=== PATIENT | female | born 1935 | race Caucasian/White ===

== ENCOUNTER 2023-09-29 15:20 | Inpatient (IN) | payer MEDICARE, OTHER, SELFPAY ==
[2023-09-27] VITALS (7 sets, daily range): BP systolic 165–194; BP diastolic 83–101; BMI 34.0; BMI 32.6
[2023-09-27 16:08] LABS: % Immature Granulocytes 0.4 % (0-0.5); % Lymphocytes 22.5 % (20.5-51.1); % Monocytes 8.7 % (1.7-9.3); % Neutrophils 68.4 % (42.2-75.2); Absolute Lymphocytes 1.1 10^3/uL (1.2-3.4); Absolute Monocytes 0.4 10^3/uL (0.1-0.6); Absolute Neutrophils 3.4 10^3/uL (1.4-6.5); Hematocrit 37.7 % (37.0-47.0); Hemoglobin 13.3 g/dL (12.0-16.0); Mean Corp Hgb Conc. 35.3 g/dL (33.0-37.0); Mean Corpuscular Hgb 30.6 pg (27.0-31.0); Mean Corpuscular Volume 86.7 fL (81.0-99.0); Mean Platelet Volume 8.4 fL (7.4-10.4); Nucleated Red Blood Cells % 0 %; Platelet Count 199 10^3/uL (130-400); Red Blood Cell Count 4.35 10^6/uL (4.20-5.40); Red Cell Dist. Width 13.3 % (11.5-14.5); White Blood Cell Count 4.9 10^3/uL (4.8-10.8)
--- NOTE | 2023-09-27 16:14 | ED.GENMED ---
History of Present Illness
General
Chief Complaint: Fall
Source: patient and ambulance crew
Exam Limitations: none
Time Seen by Provider: 09/27/23 15:59
Nursing documentation reviewed up to this point in time: agreed with
Travel History
Have you had any contact with someone who has COVID-19?: No
Do you have any symptoms of coronavirus? Fever > 100 degrees, chills, cough, shortness of breath, sore throat, loss of taste or smell, muscle aches, or headache?: No
History of Present Illness
History of Present Illness:
87-year-old female presents emergency department after losing control of her walker and falling. She is unsure if she hit her head, and states it happened so fast. She complains of right knee pain, which she does have chronic right knee pain EMS
placed her on oxygen, stated that she needed it. She denies shortness of breath.
Past History
Past History
ED Past Medical History: HTN, Hypercholesterolemia and Other (Hearing impaired)
ED Past Surgical History: Appendectomy, Cholecystectomy and Gynecological
Social History
Tobacco: Non-smoker
Alcohol: None
Personal:
Living: assisted living
Family History
Family History: Negative Diabetes
Review of Systems
Review of Systems
Allergies reviewed?: Yes
All Other Systems: Not applicable
Constitutional: Reports no symptoms
EENT: Reports no symptoms
Respiratory: Reports trouble breathing
Cardiac: Reports no symptoms
ABD/GI: Reports no symptoms
: Reports no symptoms
Musculoskeletal: Reports joint pain
Skin: Reports no symptoms
Neurological: Reports dizzy and headache
Endocrine: Reports no symptoms
Hematologic/Lymphatic: Reports no symptoms
Psychiatric: Reports no symptoms
Phy Exam
Physical Exam
Physical Exam:
Physical Exam
General: no apparent distress, not acutely ill
Neck: supple. no meningeal signs. normal posterior pharynx
Heart: s1/s2 regular rate and rhythm, no murmur. equal radial
pulses.
HEENT: Pupils equal round reactive to light, EOMI
Lungs: no acute respiratory distress. clear bilaterally
Abdomen: normal bowel sounds. not tender. no CVAT
Neuro: alert and oriented. no focal neurological deficits cranial nerves II through XII intact
Skin: no rash
Psychiatric: well kept. interactive and cooperative
Extremities: no edema. no calf tenderness. negative homans. good distal pulses, mild right knee tenderness to palpation.
Course
Orders/Labs/Results
Orders:
Orders
09/27/23 15:42
Electrocardiogram (*1) Urgent
Reason for Study: Other
Other Reason for Exam: fall
EKG- Treatment ONCE
09/27/23 15:49
Complete Blood Count/With Diff Urgent
Comprehensive Metabolic Panel Urgent
09/27/23 16:12
CT Head W/o Iv Contrast Urgent
Comment:
Reason For Exam: Fall, dizzy
Knee, Right 4 or More Views [CR Knee- Right 4 Or More View*] Urgent
Comment:
Reason For Exam: Fall, right knee pain
09/27/23 16:13
CR Chest - 2 Views Urgent
Comment:
Reason For Exam: Fall, short of breath
09/27/23 16:18
NT-proBNP Urgent
Troponin I Urgent
09/27/23 18:54
Lisinopril [Zestril] 10 mg PO NOW STA
Abnormal Lab Results
09/27/23
15:49
Absolute Lymphs (auto) 1.1 L 10^3/uL
(1.2-3.4)
Carbon Dioxide 19 L mmol/L
(22-30)
Glucose 111 H mg/dl
(70-99)
09/27/23 15:49
09/27/23 15:49
Vital Signs
Initial and Last Documented VS:
Initial Vital Signs
Temp Pulse Resp BP Pulse Ox
98 F 89 18 170/86 93
09/27/23 15:42 09/27/23 15:42 09/27/23 15:42 09/27/23 15:42 09/27/23 15:42
Last Documented Vital Signs
Temp Pulse Resp BP Pulse Ox
98 F 89 20 182/101 96
09/27/23 15:42 09/27/23 18:45 09/27/23 18:45 09/27/23 18:00 09/27/23 18:45
MDM/Problems Addressed
Differential Diagnosis Includes:
copd exacerbation, hypertensive urgency, intracranial hemorrhage, knee fracture
MDM/Problems Addressed:
87-year-old female with hypoxia, likely due to COPD. Will give a dose of lisinopril, and DuoNeb. Admit to hospitalist. Patient's fall, unclear if mechanical or due to hypertensive urgency. No significant injuries.
Chronic conditions affecting care: HTN
Acute Exacerbation and/or Progression of Chronic Illness: HTN
*Pulse Oximetry
Patient hypoxic: yes
*EKG
Interpreted by ED Provider?: Yes
EKG Intrepretation Date: 09/27/23
EKG Intrepretation Time: 15:42
Interpretation: abnormal
Comparison EKG: no changes
Heart Rate: 88
Rate: normal
Rhythm: sinus and PVC's
Flushing: normal axis
Interval: normal interval
QRS Pattern: left vent hypertrophy
Ischemia: no ischemia
*Play Reader Interpretation
Rate: normal
Interpretation: normal
Heart Rate: 84
Rhythm: sinus
*Critical Care Note
Total Time (30-74mins, 75-104mins- exclusive of procedures): Not Applicable
ED Attending Note
-
Portions of this chart may have been created with voice recognition software.� Occasional wrong word or��sound alike� substitutions may have occurred due to the inherent limitations of voice recognition software.
Discharge Plan
Departure
Patient Disposition: Admit
Date of Disposition: 09/27/23
Time of Disposition: 18:53
Admit to: Telemetry
Presentation/result/management discussed w/ accepting MD/DO: Hospitalist
Condition: Fair
Discharge Problem:
Hypertensive urgency, Hypoxia, Fall
Prescriptions:
No Action
imipramine HCl 25 MG tablet
150 mg PO HS Qty: 0 0RF
clonazepam 0.5 mg Tablet
0.5 mg PO HS
methenamine hippurate [Hiprex] 1 gram Tablet
1 g PO QPM
Gemtesa 75 mg Tablet
75 mg PO QPM
quetiapine [Seroquel] 200 mg Tablet
200 mg PO HS
lisinopril 10 mg Tablet
10 mg PO QPM
Visbiome 112.5 billion cell Capsule
1 cap PO QPM
Sleep Patch
2 patch topical HS
Rx Instructions:
contains valerian root, melatonin, hops and magnesium malate. only aloud 1 patch a night patient using 2 per night and just took them off before coming here
cyanocobalamin (vitamin B-12) 100 mcg Tablet
250 mcg PO DAILY Qty: 30 0RF
Interventions
Interventions:
*Risk Screen - Suicide Last Done: 09/27/23 15:46
*General Assessment Last Done: 09/27/23 15:46
*Neglect/Abuse Screening Last Done: 09/27/23 15:46
*ED COVID-19 Vaccine History Last Done: 09/27/23 15:46
ED-Musculoskeletal Assessment Last Done: 09/27/23 15:53
ED- Neurological Assessment Last Done: 09/27/23 15:53
ED-Skin Assessment Last Done: 09/27/23 15:53
[2023-09-27 16:29] LABS: ALT (SGPT) 24 U/L (0-35); AST (SGOT) 30 U/L (14-36); Albumin 4.5 g/dl (3.5-5.0); Alkaline Phosphatase 76 U/L (38-126); Blood Urea Nitrogen 17 mg/dl (7-17); Calcium 8.9 mg/dl (8.4-10.2); Chloride 105 mmol/L (98-107); Estimated Creatinine Clearance 55 ml/min; Glucose 111 mg/dl (70-99); Sodium 135 mmol/L (135-145); Total Bilirubin 0.8 mg/dl (0.2-1.3); Total Protein 7.3 g/dl (6.3-8.2); eGFR > 60.00
[2023-09-27 16:38] LABS: Carbon Dioxide 19 mmol/L (22-30)
[2023-09-27 16:54] LABS: NT-proBNP 28.8 pg/ml; Troponin I < 0.012 ng/ml
--- NOTE | 2023-09-27 19:01 | HPS.HSE ---
Addendum entered and electronically signed by Garett Calderon MD 09/27/23 23:29:
Correction:
Bipolar Disorder
- Held Seroquel
<del>-</del> <del>continue</del> <del>Seroquel</del>
- Held imipramine
- cont.� clonazepam
Addendum entered and electronically signed by Garett Calderon MD 09/27/23 19:38:
I saw and examined the patient.
The LIBRARY DIRECTOR or PA's note was reviewed and I agree with the note.
Comment:
HPI
87F with impaired hearing, HTN sent to ER for evalaution of Fall suspect due to loss balance. Unsure she had hit her head or what not. Reports right knee pain plus HX chronic right knee pain EMS placed her on oxygen, stated that she needed it. She
denies shortness of breath.
PMHx
HTN, Hypercholesterolemia and Other (Hearing impaired)
PSHX
Appendectomy, Cholecystectomy and Gynecological
SHX;
Tobacco: Non-smoker
Alcohol: None
Personal:
Living: assisted living
Family History
Family History: Negative Diabetes
Reviewed VS: 170/85- 190/[address] POX low 90s on RA RR hi 10s to low 20s
PE
Gen: ni ot toxic looking
HEENT: symmetric face
Neck: supple, not tender Cs spine
Lungs: symmetric AE, no wheeze
Cor: clear , symmetric AE
Abdomen: soft , NT, NG
PAYROLL MANAGER: AAO3, NFND
MS: no edema
Psych: Interactive and cooperative
Data
nl CBC
CO2 19
nl Cr & nl GFR
NEG TPNI
pBNP 28
Pending procalcitonin
Pending UA
Pending Covid Ag & Flu A & B
EKG report
SINUS RHYTHM WITH OCCASIONAL PREMATURE VENTRICULAR COMPLEXES
LEFT VENTRICULAR HYPERTROPHY WITH REPOLARIZATION ABNORMALITY ( R in aVL ,
Ronni product )
ABNORMAL ECG
WHEN COMPARED WITH ECG OF 17-AUG-2023 14:31,
PREMATURE VENTRICULAR COMPLEXES ARE NOW PRESENT
Knee XR
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
Mild chondrocalcinosis of the lateral compartment.
CXR
Mild bibasilar atelectasis versus scarring. New
HCT
- No acute intracranial pathology.
- Mild atrophy.
- Minimal periventricular small vessel ischemic disease.
Last hospitalist admission: 08/17/23 - 08/18/23
DC DX: TME due to polypharmacy
ASSESSMENT & PLAN
Accelerated HTN with HTN urgency
Essential Hypertension on ACEI
Dizziness
NEG HCT for acute process
- add IV Hydralazine for SBP > 165, DBP > 110
- cont. Lisinopril
Fall
DREDGE PUMPER Polypharmacy noted
HX Recurrent UTIs
- Eval for origins TME
- check UA, Procalcitonin, Flu A & B, Covid Ag'
- cont. hiprex
- Held Seroquel - can cont Clonazepam - held for excessive sedation
- fall precaution
- PT/OT
Borderline hypoxia - POx 94- 95 on RA
- held some PAYROLL MANAGER suppressant meds
- Incentive spirometry
Bipolar Disorder
- continue Seroquel
- Held imipramine
- cont. clonazepam
Insomnia
-Held Sleep Patch
Overactive Bladder
-Continue Gemtesa
DVT proph: LMWH
Code Status: Full Code
Obs TLM
Original Note:
Family Physician
-
Family Physician:
Chief Complaint
-
fall
History of Present Illness
87-year-old high cholesterol presented to us with mechanical fall. Patient got new wheeled walker last week. Patient does not know how to function it properly. She fell early in the morning when her walker moved away from her. Second time, she
she was on top of the stairs and lost her walker. she fell on her side. does not remember if she hit the head. stated dizzy and headache after the fall. Patient denied fever, chills, chest pain or short of breath. Patient denied cough, runny nose
and congestion. Patient denied abdominal pain, nausea, vomiting, diarrhea. Patient denied dysuria hematuria.
Patient was noted 92 on room air, supplemental with oxygen obtain a chest x-ray, Hip x-ray and head CT.
Blood pressure elevated in ER, lisinopril given in the ER. Admitting for further management.
Medical History
Past Medical History
Past Medical History: Reports Other
Additional Past Medical History:
Essential Hypertension
Hyperlipidemia
Bipolar Disorder
Overactive Bladder
Recurrent UTIs
Past Surgical History: Reports Other
Additional Past Surgical History:
hyroid Cyst Removal
Appendectomy
Cholecystectomy
Breast Reduction
Hip Surgery
Social History
Tobacco: Former Smoker
Alcohol: None
Drug: None
Personal: Single
Family History
Family History: Not pertinent
Allergies / Home Medications
Allergies reflects when Allergies were last updated in [employer].
Home Medications with original date entered in [employer]
Allergy/Medication List:
Allergies
Allergy/AdvReac Type Severity Reaction Status Date / Time
azithromycin Allergy SEE BELOW Verified 08/25/23 14:44
erythromycin base Allergy Unknown Verified 08/25/23 14:44
Home Medications
Sleep Patch 2 patch topical HS sleep 08/17/23
clonazepam 0.5 mg tablet 0.5 mg PO HS anxiety/sleep 08/17/23
lisinopril 10 mg tablet 10 mg PO QPM blood pressure 08/17/23
methenamine hippurate 1 gram tablet (Hiprex) 1 g PO QPM Urinary Issue 08/17/23
quetiapine 200 mg tablet (Seroquel) 200 mg PO HS Mental Health/Anxiety 08/17/23
vibegron 75 mg tablet (Gemtesa) 75 mg PO QPM Urinary Issue 08/17/23
ascorbic acid (vitamin C) 500 mg tablet (Vitamin C) 500 mg PO QPM 09/27/23
imipramine HCl 50 mg tablet 150 mg PO HS 09/27/23
meclizine 12.5 mg tablet 12.5 mg PO TID PRN dizziness 09/27/23
multivitamin 1 tab PO QPM 09/27/23
omeprazole 20 mg capsule,delayed release 20 mg PO DAILY PRN reflux 09/27/23
phenazopyridine 100 mg tablet (Pyridium) 100 mg PO TID PRN 'feel bladder infection coming on' 09/27/23
Review of Systems
-
Constitutional: Reports No Symptoms
EENT: Reports No Symptoms
Respiratory: Reports No Symptoms
Cardiac: Reports No Symptoms
Abdomen/GI: Reports No Symptoms
: Reports No Symptoms
Musculoskeletal: Reports No Symptoms
Skin: Reports No Symptoms
Neurological: Reports No Symptoms
Endocrine: Reports No Symptoms
Hematologic/Lymphatic: Reports No Symptoms
Psych: Reports No Symptoms
Physical Exam
Vital Signs
Vital Signs
Temp Pulse Resp BP Pulse Ox
98 F 89 20 182/101 96
09/27/23 15:42 09/27/23 18:45 09/27/23 18:45 09/27/23 18:00 09/27/23 18:45
Physical Exam
General: Well Developed, Well Nourished and No Apparent Distress
HEENT: NormoCephalic, Moist mucous membranes and Atraumatic
Respiratory: Clear
Cardiac: S1/S2 and Regular Rhythm; No Murmur or Rub
GI: Soft, Non Tender, Non Distended and Normal Bowel Sounds; No Organomegaly
Rectal: Deferred by Provider
Musculoskeletal: No Clubbing, No Cyanosis and No Edema
Skin: No Rash
Neuro: AO x 3 and Nonfocal/grossly intact
Psych: Calm
Laboratory Results
-
09/27/23 15:49
09/27/23 15:49
Laboratory Results
Total Bilirubin 0.8 mg/dl (0.2-1.3) 09/27/23 15:49
AST 30 U/L (14-36) 09/27/23 15:49
ALT 24 U/L (0-35) 09/27/23 15:49
Alkaline Phosphatase 76 U/L (38-126) 09/27/23 15:49
Troponin I < 0.012 ng/ml 09/27/23 16:18
Data Reviewed
-
Diagnostic Radiology: Report Reviewed by me
CT Scan: Report Reviewed by me
Lab Data: Labs Reviewed by me
Impression/Plan
-
# Accelerated hypertension with hypertensive emergency
-SBP in 180's DBP in 100.s
-Patient received a dose of lisinopril in ER
-Lisinopril continued
-Hydralazine as needed for systolic BP greater than 170 and diastolic BP greater than 100
# Mechanical fall
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
-Head CT with impression of No acute intracranial pathology.Mild atrophy.Minimal periventricular small vessel ischemic disease.Mild nonacute sinusitis. Stable
-EKG with impression ofI sNUS RHYTHM WITH OCCASIONAL PREMATURE VENTRICULAR COMPLEXES LEFT VENTRICULAR HYPERTROPHY WITH REPOLARIZATION ABNORMALITY
-Fall precaution maintained
-Physical therapy and Occupational Therapy consulted
# Acute borderline hypoxia unclear cause
-Chest x-ray with impression of Mild bibasilar atelectasis versus scarring. New
-91-92 on room air, supplemented with 2 L of oxygen
-At present upon my evaluation 94-95 on room air
-Continue supplemental oxygen to keep sat greater than 92
-Wean as tolerated
-Pro-Michael added
-Obtain COVID, flu
-Incentive spirometer added
#Bipolar Disorder
-Hold Seroquel and imipramine
-Continue clonazepam
-Hold sleep patch
#Overactive Bladder
-Continue Gemtesa
#Recurrent UTIs
-Continue Hiprex
#DVT proph: Lovenox
Code Status: Full Code
[2023-09-27] MEDS: ZESTRIL 10 MG PO (19:04)
[2023-09-27 20:08] LABS: COVID-19 Antigen Negative (Negative)
[2023-09-27 20:28] LABS: Procalcitonin < 0.05 ng/ml (0.0-0.25)
[2023-09-27] MEDS: APRESOLINE 5 MG IV (21:34)
[2023-09-27] MEDS: KLONOPIN 0.5 MG PO (21:34)
--- NOTE | 2023-09-27 22:12 | PTCARENOTE ---
Pt admitted to 4E. AAOx3, anxious and forgetful at times. NSR in the monitor. Lung sounds are diminished, SaO2 97% 2L. Abd round and obese. pt appears comfortable in bed. Call dias within reach.
[2023-09-27] MEDS: APRESOLINE 10 MG IV (23:39)
[2023-09-28] VITALS (9 sets, daily range): BP systolic 100–172; BP diastolic 63–97; PULSE 104–107; O2SAT 94–95
[2023-09-28] MEDS: APRESOLINE 10 MG IV ×2 (07:57→20:54)
[2023-09-28 08:17] LABS: Hematocrit 40.3 % (37.0-47.0); Hemoglobin 13.8 g/dL (12.0-16.0); Mean Corp Hgb Conc. 34.2 g/dL (33.0-37.0); Mean Corpuscular Hgb 30.3 pg (27.0-31.0); Mean Corpuscular Volume 88.6 fL (81.0-99.0); Mean Platelet Volume 8.7 fL (7.4-10.4); Platelet Count 216 10^3/uL (130-400); Red Blood Cell Count 4.55 10^6/uL (4.20-5.40); Red Cell Dist. Width 13.4 % (11.5-14.5); White Blood Cell Count 5.4 10^3/uL (4.8-10.8)
[2023-09-28 08:44] LABS: Blood Urea Nitrogen 13 mg/dl (7-17); Calcium 9.2 mg/dl (8.4-10.2); Carbon Dioxide 26 mmol/L (22-30); Chloride 103 mmol/L (98-107); Estimated Creatinine Clearance 62 ml/min; Glucose 148 mg/dl (70-99); Potassium 3.7 mmol/L (3.5-5.1); Sodium 139 mmol/L (135-145); eGFR > 60.00
--- NOTE | 2023-09-28 09:20 | W.PN.HOSP.TC ---
Today's Communication/Plan
-
see A/P
Assessment / Plan
Assessment / Plan
HPI: 87 F with impaired hearing, HTN, HLD; p/w fall suspect due to loss balance. Unsure she hit her head or not. Reports right knee pain (although has h/o chronic right knee pain). EMS placed her on oxygen.� She denies shortness of breath.
A/P:
# HTN urgency
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
HCT neg for acute process
cont CONVERTER OPERATOR Lisinopril increase to 20 mg and change from HS to daily
Cont add IV Hydralazine PRN for SBP > 165, DBP > 110
# Fall
# Polypharmacy noted
# HX Recurrent UTIs
check UA
Procalcitonin neg, COVID/Flu negative
cont CONVERTER OPERATOR hiprex
Decrease CONVERTER OPERATOR Clonazepam from 0.5 to 0.25 HS
Agree to hold CONVERTER OPERATOR Seroquel
fall precaution
PT/OT recc SNF
# Acute hypoxic resp insufficiency, resolved
weaned to RA
Incentive spirometry
# Bipolar Disorder
cont decreased clonazepam
CONVERTER OPERATOR Seroquel, imipramine held
Psych CS for med adjustment
# Insomnia
cont decreased clonazepam
Hold Sleep Patch
# Overactive Bladder
Continue Gemtesa
DVT proph: LMWH
Code Status: Full Code
Anticipated Discharge: 24 - 48 hours
Subjective/Interval History
-
Date of Service: September 28, 2023
Objective Data
-
Labs:
Laboratory Results
09/28/23
06:40
WBC 5.4
Hgb 13.8
Hct 40.3
Plt Count 216
Sodium 139
Potassium 3.7
Chloride 103
Carbon Dioxide 26
BUN 13
Creatinine 0.6
Glucose 148 H
Calcium 9.2
Vital Signs:
Vital Signs
Temp Pulse Resp BP Pulse Ox
36.9 C 85 18 172/85 98
09/28/23 07:23 09/28/23 07:23 09/28/23 07:23 09/28/23 07:57 09/28/23 07:23
I&O
09/27/23 09/28/23 09/29/23
06:59 06:59 06:59
Output Total 480 / 480
Balance -480 / -480
Review of Systems
-
All other systems: Reviewed and negative
Physical Exam
-
General: Well Developed, Well Nourished, No Apparent Distress, Comfortable and Conversant; Negative Respiratory Distress
HEENT: Normocephalic, Atraumatic, Nose Appears Normal and Ears Appear Normal; Negative Oxygen
Respiratory: Clear to Auscultation and Non Labored Respirations; Negative Accessory Resp Muscle Use
Cardiac: Regular Rhythm and S1/S2
GI: Soft, Nontender, Nondistended and Normal Bowel Sounds
Skin: Warm and Dry
Neuro: Awake and Alert
Psych: Calm and Intact Judgement/Insight
Data Reviewed
-
Labs: Labs Reviewed by me
[2023-09-28] MEDS: TYLENOL 650 MG PO ×2 (11:25→16:26)
[2023-09-28] MEDS: FLUSH (NSS) 1 FLUSH IV (11:44)
--- NOTE | 2023-09-28 14:18 | CON.MD ---
Consultation - Medical
-
patient seen chart reviewed. patient is an 87 year old woman who was a good historian. she has hx of mood disorder for many years. she had a difficult childhood and believes at least some of her psych issues had to do with this experience.she had
seen dr kelley for many years who is a psychiatrist and was prescribed seroquel 200 q hs imipramine 150 mg daily and klonopin o.5 mg q hs. she has taken the imipramine since 1980! dr kellye has retired and she was to see dr aguirre as her new psych
but fell on the way in to his office and never made it there. she believes strongly that these meds have really helped her but mostly w sleep in the recent past. she struggles to fall and stay asleep. appetite is good.she has not been depressed in a
very long time. she has moments where she might be dysphoric but really feels okay mood faith. she is NOT suicidal. appetite ok. she can enjoy family whom she says is very supportive
past psych hx hospitalized forty years ago. said 'it was like cuckoo's nest'. she was at [facility] has been seeing psychiatrist for many years see above
medical here after a fall which she insists was due to her new walker ( i can actually see how this could have happened) she admits she fell with her old walker but this was a difficult negotiation across a curb. she denies she has ever
experienced dizziness sedation vertigo etc as a cause of the fall. hx gerd djd recurrent uti urinary issues hearing imparied htn cat brain w no acute changes
substance abuse none
fh schizophrenia
social resides in [place]. sis lives there also she is sis's poa two girls one of her kids many grandchildren
mse alert ox3 cooperative very pleasant speech and thought process goal oriented normal rate and tone mood is cheerful affect ok no si aver intell insight judgment ok
dx unspecified mood disorder (patient reports she has been told she is bipolar but unclear whether her depressions are unipolar or bipolar at this moment ) there is likely a complicated px given painful childhood
plan at this point would not stop meds abruptly. dc meclizine which is ordered.. stop hs klonopin. would cut back seorquel to 150 mg and imipramine to 100 mg and let her see dr aguirre to manage further changes. psych will sign off.
[2023-09-28 14:19] LABS: Urine Albumin 1+ (Neg - Trace); Urine Bilirubin Negative (Negative); Urine Character Very Cloudy (Clear); Urine Color Yellow; Urine Glucose Negative (Negative); Urine Ketone Negative (Negative); Urine Leukocyte 2+ (Negative); Urine Nitrite Negative (Negative); Urine Occult Blood Negative (Negative); Urine Specific Gravity 1.015 (<1.030); Urine Urobilinogen Negative (Neg - 1+)
[2023-09-28 14:27] LABS: Urine Bacteria Many (Negative); Urine Red Blood Cell 0-2 /HPF (0-2); Urine Squamous Cell >30 /LPF (Few); Urine White Cell 26-30 /HPF (0-5)
--- NOTE | 2023-09-28 16:25 | CM ---
Alert awake oriented patient who lives at [facility].She is independent in all activities of daily living.She was using a rollator and fell . She is changing back to rolling walker.She is current with [facility] out pt PT.Her daughter will
resume out pt PT for patient.Yasmin reviewed with patient Copy given Copy on chart.
No VN hx /[facility] history
Pharmacy [place]
PCP DR Quintana
PLAN Home no needs Family to resume out pt PT.
[2023-09-28] MEDS: THERAGRAN 1 TABLET PO (17:19)
[2023-09-28] MEDS: DETROL LA 4 MG PO (17:19)
[2023-09-28] MEDS: LOVENOX 40 MG SC (17:19)
[2023-09-28] MEDS: HIPREX 1 GRAM PO (17:19)
[2023-09-28] MEDS: REFRESH EYE DROPS (PF) 1 DROPS OPHTH ×2 (17:20→22:01)
[2023-09-28] MEDS: TOFRANIL 100 MG PO (20:47)
[2023-09-28] MEDS: SEROQUEL 150 MG PO (20:53)
[2023-09-29] VITALS (8 sets, daily range): BP systolic 121–158; BP diastolic 65–96; PULSE 96
[2023-09-29 04:53] LABS: Glucose - Point of Care 149 mg/dl (70-99)
--- NOTE | 2023-09-29 05:15 | PTCARENOTE ---
After waking up and ambulating to the bathroom, patient noted to have a brief period of aphasia. Patient reports trouble word finding and unable to state date. No other neurological deficits noted. VSS, no complaints of pain. OUTREACH SPECIALIST made aware, no new
orders at this time. Patient then able to be reoriented and answer questions appropriately. Plan of care ongoing.
[2023-09-29] MEDS: ZESTRIL 20 MG PO (06:19)
[2023-09-29] MEDS: ZESTRIL PO (08:45)
--- NOTE | 2023-09-29 09:51 | W.PN.HOSP.TC ---
Today's Communication/Plan
-
see A/P
Assessment / Plan
Assessment / Plan
HPI: 87 F with impaired hearing, HTN, HLD; p/w fall suspect due to loss balance. Unsure she hit her head or not. Reports right knee pain (although has h/o chronic right knee pain). EMS placed her on oxygen.� She denies shortness of breath.
A/P:
# HTN urgency
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
HCT neg for acute process
cont INDUSTRIAL TRUCK DRIVER Lisinopril increased to 20 mg and change from HS to daily
Cont added IV Hydralazine PRN for SBP > 165, DBP > 110
# Fall
PT OT recc HH
# Polypharmacy noted
# unspecified mood disorder/ Bipolar Disorder
Psych on board
DC meclizine, stop HS Klonopin.�
Cut back Seroquel to 150 mg and imipramine to 100 mg
Follow up outpt psych with Dr Gatica
# HX Recurrent UTIs
Follow urine Cx
Procalcitonin neg, COVID/Flu negative
cont INDUSTRIAL TRUCK DRIVER hiprex
Start empiric Ceftriaxone until formal urine Cx result
# Acute hypoxic respiratory insufficiency, resolved
weaned to RA
Incentive spirometry
# Insomnia
DC meclizine, stop HS Klonopin
Hold Sleep Patch
# Overactive Bladder
Continue Gemtesa
DVT proph: LMWH
Code Status: Full Code
Dispo: HH
updated daughter Syl on the phone
Anticipated Discharge: Within 24 hours
Subjective/Interval History
-
Date of Service: September 29, 2023
Objective Data
-
Vital Signs:
Vital Signs
Temp Pulse Resp BP Pulse Ox
36.8 C 88 18 146/69 92
09/29/23 07:35 09/29/23 07:35 09/29/23 07:35 09/29/23 07:35 09/29/23 07:35
I&O
09/28/23 09/29/23 09/30/23
06:59 06:59 06:59
Intake Total 720 / 720
Output Total 480 / 480
Balance -480 / -480 720 / 720
Review of Systems
-
All other systems: Reviewed and negative
Physical Exam
-
General: Well Developed, Well Nourished, No Apparent Distress, Comfortable and Conversant; Negative Respiratory Distress
HEENT: Normocephalic, Atraumatic, Nose Appears Normal and Ears Appear Normal; Negative Oxygen
Respiratory: Clear to Auscultation and Non Labored Respirations; Negative Accessory Resp Muscle Use
Cardiac: Regular Rhythm and S1/S2
GI: Soft, Nontender, Nondistended and Normal Bowel Sounds
Skin: Warm and Dry
Neuro: Awake and Alert
Psych: Calm and Intact Judgement/Insight
Data Reviewed
-
Labs: Labs Reviewed by me
[2023-09-29] MEDS: STERILE WATER FOR INJECTION 10 ML IV (10:23)
[2023-09-29] MEDS: ROCEPHIN 1000 MG IV (10:23)
--- NOTE | 2023-09-29 13:03 | W.PN.UPDATE ---
Update Note
Progress Note Update
patient seen chart reviewed. spoke w daughter this am. d had apparently complained that i would not talk to her. patient told me 'oh just ignore her. she is like that'. informed d of my assessment and rx of patient and changes we had made in
meds. also called dr aguirre who will be seeing patient and we communicated by text. dr aguirre and i are on the same page re patient medications. the patient is in a good space psychiatrically right now. she is agreeable to reducing meds as much as
possible c/w remission of her psych sx. she shared w me some of her life experience. the of her son....her divorce...she has tried to maintain a good relationship w her ex for the benefit of her daughters. she also has remained close to the
of her son. she spoke of her sister for whom she is guardian. would continue w psych meds as they are dr aguirre aware we have made some changes and he will address furthre changes psych will sign off.
--- NOTE | 2023-09-29 16:37 | CM ---
Spoke with patient she said she will be dc tomorrow as per her MD.
She is current with [facility] out pt PT.Her daughter will resume out pt PT for patient.
Daughter Ninfa will drive her home at dc.
PLAN Home no needs Family to resume out pt PT.
[2023-09-29] MEDS: THERAGRAN 1 TABLET PO (17:36)
[2023-09-29] MEDS: HIPREX 1 GRAM PO (17:36)
[2023-09-29] MEDS: DETROL LA 4 MG PO (17:36)
[2023-09-29] MEDS: LOVENOX 40 MG SC (17:37)
[2023-09-29] MEDS: TOFRANIL 100 MG PO (21:31)
[2023-09-29] MEDS: SEROQUEL 150 MG PO (21:32)
[2023-09-30 03:00] VITALS: BP 160/80
[2023-09-30 07:22] VITALS: BP 171/87
[2023-09-30 08:16] LABS: Hematocrit 37.6 % (37.0-47.0); Hemoglobin 12.9 g/dL (12.0-16.0); Mean Corp Hgb Conc. 34.3 g/dL (33.0-37.0); Mean Corpuscular Hgb 29.7 pg (27.0-31.0); Mean Corpuscular Volume 86.6 fL (81.0-99.0); Mean Platelet Volume 8.6 fL (7.4-10.4); Platelet Count 192 10^3/uL (130-400); Red Blood Cell Count 4.34 10^6/uL (4.20-5.40); Red Cell Dist. Width 13.4 % (11.5-14.5)
[2023-09-30 08:41] LABS: Blood Urea Nitrogen 18 mg/dl (7-17); Calcium 9.3 mg/dl (8.4-10.2); Carbon Dioxide 26 mmol/L (22-30); Chloride 103 mmol/L (98-107); Estimated Creatinine Clearance 62 ml/min; Glucose 136 mg/dl (70-99); Potassium 4.3 mmol/L (3.5-5.1); Sodium 138 mmol/L (135-145); eGFR > 60.00
[2023-09-30] MEDS: ZESTRIL 20 MG PO (08:45)
[2023-09-30] MEDS: ROCEPHIN 1000 MG IV (10:27)
[2023-09-30] MEDS: STERILE WATER FOR INJECTION 10 ML IV (10:27)
--- NOTE | 2023-09-30 10:39 | W.PN.HOSP.TC ---
Addendum entered and electronically signed by Lawanda Alvares MD 09/30/23 13:26:
total DC time 35 min
Original Note:
Today's Communication/Plan
-
DC home with HH
Assessment / Plan
Assessment / Plan
HPI: 87 F with impaired hearing, HTN, HLD; p/w fall suspect due to loss balance. Unsure she hit her head or not. Reports right knee pain (although has h/o chronic right knee pain). EMS placed her on oxygen.� She denies shortness of breath.
A/P:
# HTN urgency
# Essential Hypertension on [employer]
HCT neg for acute process
cont [employer] Lisinopril increased to 20 mg and change from HS to daily
added Norvasc 2.5 mg daily, further dose adjustment per PCP
Cont added IV Hydralazine PRN for SBP > 165, DBP > 110
# Fall
PT OT recc HH
# Polypharmacy noted
# unspecified mood disorder/ Bipolar Disorder
Psych on board
DC meclizine, stop HS Klonopin.�
Cut back Seroquel to 150 mg and imipramine to 100 mg
Follow up outpt psych with Dr Gatica
# UTI
# HX Recurrent UTIs
urine Cx with pansensitive E coli
Procalcitonin neg, COVID/Flu negative
cont [employer] hiprex
Ceftriaxone -> PO Keflex 3 days
# Acute hypoxic respiratory insufficiency, resolved
weaned to RA
Incentive spirometry
# Insomnia
DCed meclizine, stopped HS Klonopin
Hold Sleep Patch
# Overactive Bladder
Continue Gemtesa
DVT proph: LMWH
Code Status: Full Code
Dispo: HH
updated daughter Syl on the phone
Anticipated Discharge: Today
Subjective/Interval History
-
Date of Service: September 30, 2023
Objective Data
-
Labs:
Laboratory Results
09/30/23
07:57
WBC 4.0 L
Hgb 12.9
Hct 37.6
Plt Count 192
Sodium 138
Potassium 4.3
Chloride 103
Carbon Dioxide 26
BUN 18 H
Creatinine 0.6
Glucose 136 H
Calcium 9.3
Vital Signs:
Vital Signs
Temp Pulse Resp BP Pulse Ox
36.6 C 88 18 170/88 94
09/30/23 07:22 09/30/23 08:45 09/30/23 07:22 09/30/23 08:45 09/30/23 08:45
I&O
09/29/23 09/30/23 10/01/23
06:59 06:59 06:59
Intake Total 720 / 720 840 / 840
Output Total 550 / 550
Balance 720 / 720 290 / 290
Review of Systems
-
All other systems: Reviewed and negative
Physical Exam
-
General: Well Developed, Well Nourished, No Apparent Distress, Comfortable and Conversant; Negative Respiratory Distress
HEENT: Normocephalic, Atraumatic, Nose Appears Normal and Ears Appear Normal; Negative Oxygen
Respiratory: Clear to Auscultation and Non Labored Respirations; Negative Accessory Resp Muscle Use
Cardiac: Regular Rhythm and S1/S2
GI: Soft, Nontender, Nondistended and Normal Bowel Sounds
Skin: Warm and Dry
Neuro: Awake and Alert
Psych: Calm and Intact Judgement/Insight
Data Reviewed
-
Labs: Labs Reviewed by me
[2023-09-30 11:15] VITALS: BP 151/100
--- NOTE | 2023-09-30 13:09 | W.DCSUMMARY ---
Discharge Summary
Discharge Data
Date of Admission: 09/29/23
Date of Discharge: 09/30/23
-
Pending Results: No
Hospital Course
Principal Diagnosis:
Mechanical fall.
Hypertension urgency
Polypharmacy noted.
Urinary tract infection.
Chronic Diagnoses:�
Essential Hypertension
Insomnia
Overactive Bladder
Unspecified mood disorder/ Bipolar Disorder
History of Recurrent UTIs
Consultations:�
Psychiatry
Procedures:�
None
Clinical course:�
This is a 87-year-old female, with past medical history as stated above, who presented with mechanical fall suspect due to loss balance. Her mechanical fall was felt likely related polypharmacy and may be associated with hypertension urgency.
Problem 1:
Hypertension urgency.
Her CT head showed no acute process.
Her prior to admission lisinopril was increased from 10 mg HS to 20 mg daily.
Norvasc 2.5 mg daily was also added and further dose adjustment per her PCP.
Problem 2:
Mechanical fall.
The patient was discharged home with HH per PT OT renetta.
Problem 3:
Polypharmacy noted.
Patient has history of unspecified mood disorder/ Bipolar Disorder.
Her prior to admission meclizine and Klonopin HS were discontinued.�
Her prior to admission Seroquel and imipramine were reduced from 200 to 150 mg and 150 to 100 mg, respectively.
She can follow up outpt with psychiatrist Dr Gatica.
Problem 4:
UTI.
Patient's urine culture grew pansensitive E. coli.
She received IV ceftriaxone while in the hospital, and was discharged with Keflex for 3 more days.
She has been informed to continue with methenamine twice daily (instead of daily which she was taking prior to admission) after completion of the antibiotic course.
As for the rest of her medical problems, they were stable during her hospital stay.
Discharge Plan
-
Patient Disposition: Home with Home Care
Discharge Diagnosis/Procedures: Recurrent fall; Polypharmacy noted; hypertension urgency; urinary tract infection
Condition: Fair
Diet: Regular and Low Sodium
Activity: As tolerated
Driving Restrictions: Not until seen by your Dr
Stop these medications:: meclizine, Klonopin.�
Activity Restrictions/Additional Instructions:
We have decreased Seroquel from 200 to 150 mg, and imipramine from 150 to 100 mg.
Follow up with your psychiatrist Dr Gatica.
We have increased your Lisinopril from 10 to 20 mg daily.
We have added Norvasc 2.5 mg daily for better blood pressure control. Defer further dose adjustment to your PCP
Continue Keflex for your UTI for 3 days, then resume methenamine (but take twice daily)
Referrals:
Reggie Beckman MD [Family Provider] - in less than 1 week
Prescriptions:
New
quetiapine 100 mg Tablet
150 mg PO HS Qty: 30 0RF
imipramine HCl 25 mg Tablet
100 mg PO HS Qty: 30 0RF
lisinopril 20 mg Tablet
20 mg PO DAILY Qty: 30 0RF
amlodipine [Norvasc] 2.5 mg tablet
2.5 mg PO DAILY Qty: 30 0RF
cephalexin 500 mg capsule
500 mg PO BID 3 Days Qty: 6 0RF
Continued
Gemtesa 75 mg Tablet
75 mg PO QPM
multivitamin Tablet
1 tab PO QPM
ascorbic acid (vitamin C) [Vitamin C] 500 mg Tablet
500 mg PO QPM
phenazopyridine [Pyridium] 100 mg Tablet
100 mg PO TID PRN (Reason: 'feel bladder infection coming on')
omeprazole 20 mg Capsule,Delayed Release(Dr/Ec)
20 mg PO DAILY PRN (Reason: reflux)
Changed
methenamine hippurate [Hiprex] 1 gram Tablet
1 g PO BID Qty: 0 0RF
Discontinued
clonazepam 0.5 mg Tablet
0.5 mg PO HS
Patient Comments:
09/27/2023: last filled 09/20/23, 30 tabs for 30 days from [facility]
quetiapine [Seroquel] 200 mg Tablet
200 mg PO HS
lisinopril 10 mg Tablet
10 mg PO QPM
Sleep Patch
2 patch topical HS
Rx Instructions:
contains valerian root, melatonin, hops and magnesium malate. only aloud 1 patch a night patient using 2 per night and just took them off before coming here
imipramine HCl 50 mg tablet
150 mg PO HS
meclizine 12.5 mg Tablet
12.5 mg PO TID PRN (Reason: dizziness)
Discharge Orders:
Discharge Patient (As Directed); Ordered 09/30/23
Ordered By: Lawanda Alvares
--- NOTE | 2023-09-30 14:50 | CM ---
MD entered order for discharge.
Pt changed to inpatient IMM given explained signed on chart.
Pt said she was ready for discharge today.
Daughter Ninfa will drive her home today.
She is current with [facility] out pt PT.Her daughter will set up/resume out pt PT for patient.
PLAN Home no needs Family to resume out pt PT.
== END 2023-09-30 13:15 | disposition home health service (06) | DRG 305 ==
LOC: 4 EAST ACU 15:20
PROVIDERS: Emergency Medicine; Registered Nurse; ADMITTING PHYSICIAN Internal Medicine; ATTENDING PHYSICIAN Internal Medicine; CONSULT PHYSICIAN Psychiatry & Neurology Psychiatry; EMERGENCY PHYSICIAN Emergency Medicine; FAMILY PHYSICIAN Internal Medicine
DX: I16.0 Hypertensive urgency (principal); N39.0 Urinary tract infection, site not specified; I11.9 Hypertensive heart disease without heart failure; M25.561 Pain in right knee; F31.9 Bipolar disorder, unspecified; G47.00 Insomnia, unspecified; N32.81 Overactive bladder; R09.02 Hypoxemia; R06.89 Other abnormalities of breathing; Z87.891 Personal history of nicotine dependence
CPT/HCPCS: 70450; 71046; 73564; 80048; 80053; 81003; 81015; 82962; 83880; 84145; 84484; 85025; 85027; 87077; 87086; 87186; 87502; 87811; 93005; 97116; 97162; 97166; 99285

== ENCOUNTER → 2024-04-12 12:18 | Outpatient (REF) | payer MEDICARE, OTHER, SELFPAY | LOC: WDC 12:18 | PROVIDERS: ATTENDING PHYSICIAN Nurse Practitioner Family; FAMILY PHYSICIAN Internal Medicine | DX: Z78.0 Asymptomatic menopausal state (principal); Z12.31 Encounter for screening mammogram for malignant neoplasm of breast | CPT/HCPCS: 77063; 77067; 77080 ==

== ENCOUNTER → 2024-08-07 14:38 | Outpatient (REF) | payer MEDICARE, OTHER, SELFPAY ==
[2024-08-07 15:09] LABS: Urine Albumin Trace (Neg - Trace); Urine Bilirubin Negative (Negative); Urine Character Very Cloudy (Clear); Urine Color Yellow; Urine Glucose Negative (Negative); Urine Ketone Negative (Negative); Urine Leukocyte 2+ (Negative); Urine Nitrite Negative (Negative); Urine Occult Blood Negative (Negative); Urine Specific Gravity 1.015 (<1.030); Urine Urobilinogen Negative (Neg - 1+)
[2024-08-07 15:29] LABS: Urine Mucus Few
[2024-08-07 15:30] LABS: Urine Bacteria Many (Negative); Urine Red Blood Cell 0-2 /HPF (0-2); Urine White Cell 26-30 /HPF (0-5)
== END ==
LOC: REG 14:38
PROVIDERS: ATTENDING PHYSICIAN Specialist; FAMILY PHYSICIAN Internal Medicine
DX: N39.0 Urinary tract infection, site not specified (principal)
CPT/HCPCS: 81003; 81015; 87086

== ENCOUNTER → 2024-09-26 15:32 | Outpatient (REF) | payer MEDICARE, OTHER, SELFPAY ==
[2024-09-26 17:09] LABS: Urine Albumin 2+ (Neg - Trace); Urine Bilirubin 1+ (Negative); Urine Character Clear (Clear); Urine Color Red; Urine Glucose Negative (Negative); Urine Ketone Negative (Negative); Urine Leukocyte 1+ (Negative); Urine Nitrite Positive (Negative); Urine Occult Blood 1+ (Negative); Urine Urobilinogen Negative (Neg - 1+)
[2024-09-26 17:18] LABS: Urine Bacteria Many (Negative); Urine White Cell 40-50 /HPF (0-5)
[2024-09-26 17:19] LABS: Urine Squamous Cell 0-2 /LPF (Few)
== END ==
LOC: CLAB 15:32
PROVIDERS: ATTENDING PHYSICIAN Specialist
DX: N30.20 Other chronic cystitis without hematuria (principal)
CPT/HCPCS: 81003; 81015; 87077; 87086; 87186

== ENCOUNTER → 2024-12-20 10:01 | Outpatient (REF) | payer MEDICARE, OTHER, SELFPAY | LOC: OLABWIL 10:01 | PROVIDERS: ATTENDING PHYSICIAN Psychiatry & Neurology Psychiatry | DX: F31.81 Bipolar II disorder (principal) | CPT/HCPCS: 36415; 80335 ==

== ENCOUNTER → 2025-01-24 14:10 | Outpatient (REF) | payer MEDICARE, OTHER, SELFPAY ==
[2025-01-24 15:08] LABS: Urine Albumin 1+ (Neg - Trace); Urine Bilirubin 2+ (Negative); Urine Character Clear (Clear); Urine Color Yellow; Urine Glucose Negative (Negative); Urine Ketone Negative (Negative); Urine Leukocyte 3+ (Negative); Urine Nitrite Positive (Negative); Urine Occult Blood 1+ (Negative); Urine Urobilinogen 2+ (Neg - 1+)
[2025-01-24 15:14] LABS: Urine Bacteria Many (Negative); Urine White Cell >100 /HPF (0-5)
[2025-01-24 15:15] LABS: Urine Amorphous Seen
== END ==
LOC: REG 14:10
PROVIDERS: ATTENDING PHYSICIAN Specialist; FAMILY PHYSICIAN Internal Medicine
DX: N39.0 Urinary tract infection, site not specified (principal)
CPT/HCPCS: 81003; 81015; 87077; 87086; 87147

== ENCOUNTER → 2025-01-31 11:30 | Outpatient (REF) | payer MEDICARE, OTHER, SELFPAY ==
[2025-01-31 17:18] LABS: Urine Albumin 1+ (Neg - Trace); Urine Bilirubin Negative (Negative); Urine Character Clear (Clear); Urine Color Yellow; Urine Glucose Negative (Negative); Urine Ketone Negative (Negative); Urine Leukocyte 3+ (Negative); Urine Nitrite Positive (Negative); Urine Occult Blood 1+ (Negative); Urine Specific Gravity 1.015 (<1.030); Urine Urobilinogen Negative (Neg - 1+)
[2025-01-31 17:42] LABS: Urine Bacteria Many (Negative); Urine Red Blood Cell 0-2 /HPF (0-2); Urine Squamous Cell 0-2 /LPF (Few); Urine White Cell >100 /HPF (0-5)
[2025-01-31 17:43] LABS: Urine Amorphous Seen
== END ==
LOC: CLAB 11:30
PROVIDERS: ATTENDING PHYSICIAN Specialist
DX: N39.0 Urinary tract infection, site not specified (principal)
CPT/HCPCS: 81003; 81015; 87086

== ENCOUNTER → 2025-03-22 13:10 | Outpatient (REF) | payer MEDICARE, OTHER, SELFPAY | LOC: REG 13:10 | PROVIDERS: ATTENDING PHYSICIAN Internal Medicine | DX: I10 Essential (primary) hypertension (principal); F31.9 Bipolar disorder, unspecified; N30.20 Other chronic cystitis without hematuria; K21.9 Gastro-esophageal reflux disease without esophagitis | CPT/HCPCS: 36415 ==

== ENCOUNTER → 2025-03-28 08:50 | Outpatient (REF) | payer MEDICARE, OTHER, SELFPAY ==
[2025-03-28 09:42] LABS: Hematocrit 37.5 % (37.0-47.0); Hemoglobin 12.9 g/dL (12.0-16.0); Mean Corp Hgb Conc. 34.4 g/dL (33.0-37.0); Mean Corpuscular Volume 89.7 fL (81.0-99.0); Nucleated Red Blood Cells % 0 %; Platelet Count 201 10^3/uL (130-400); Red Cell Dist. Width 12.9 % (11.5-14.5)
[2025-03-28 09:59] LABS: ALT (SGPT) 23 U/L (0-35); AST (SGOT) 20 U/L (14-36); Albumin 4.4 g/dl (3.5-5.0); Alkaline Phosphatase 87 U/L (38-126); Blood Urea Nitrogen 15 mg/dl (7-17); Calcium 9.3 mg/dl (8.4-10.2); Carbon Dioxide 26 mmol/L (22-30); Chloride 106 mmol/L (98-107); Glucose 179 mg/dl (70-99); HDL Cholesterol 39 mg/dl; LDL Cholesterol, Calculated 125 mg/dl; Potassium 4.4 mmol/L (3.5-5.1); Sodium 140 mmol/L (135-145); Total Protein 7.0 g/dl (6.3-8.2); Very Low Density Lipoprotein 43 mg/dl (0-30); eGFR > 60.00
== END ==
LOC: OLABWIL 08:50
PROVIDERS: ATTENDING PHYSICIAN Internal Medicine
DX: I10 Essential (primary) hypertension (principal); F31.9 Bipolar disorder, unspecified; N30.20 Other chronic cystitis without hematuria; K21.9 Gastro-esophageal reflux disease without esophagitis
CPT/HCPCS: 36415; 80053; 80061; 85025

== ENCOUNTER → 2025-04-02 10:14 | Outpatient (REF) | payer MEDICARE, OTHER, SELFPAY ==
[2025-04-02 12:12] LABS: Glycohemoglobin (HgbA1c) 6.0 % (4.0-5.6)
== END ==
LOC: OLABWIL 10:14
PROVIDERS: ATTENDING PHYSICIAN Internal Medicine
DX: R73.9 Hyperglycemia, unspecified (principal)
CPT/HCPCS: 36415; 83036

== ENCOUNTER → 2025-04-15 13:30 | Outpatient (REF) | payer MEDICARE, OTHER, SELFPAY | LOC: WDC 13:30 | PROVIDERS: ATTENDING PHYSICIAN Nurse Practitioner Family; FAMILY PHYSICIAN Internal Medicine | DX: Z12.31 Encounter for screening mammogram for malignant neoplasm of breast (principal) | CPT/HCPCS: 77063; 77067 ==